=== PATIENT | female | born 1980 | race Two or more races ===

== ENCOUNTER 2022-04-24 15:47 | Emergency (ER) | payer MEDICAID ==
[~2022-04-24] VITALS: Ht 162.6 cm; Wt 61.0 kg
[2022-04-24 20:45] VITALS: BP 154/86
== END 2022-04-24 20:50 | disposition home or self-care (01) ==
LOC: ER 15:51
DX: S93.402A Sprain of unspecified ligament of left ankle, initial encounter (principal); F12.10 Cannabis abuse, uncomplicated; X50.1XXA Overexertion from prolonged static or awkward postures, initial encounter; Y93.89 Activity, other specified; Y92.89 Other specified places as the place of occurrence of the external cause; Y99.8 Other external cause status
CPT/HCPCS: 73610